=== PATIENT | female | born 1980 | race Caucasian/White ===

== ENCOUNTER 2021-06-09 10:04 | Emergency (ER) | payer BC, SELFPAY ==
--- NOTE | ~2021-06-09 | XR_ITS ---
EXAMINATION: XR chest 2V EXAM DATE: 06/09/2021 10:46 INDICATION: chest tightness . TECHNIQUE: Frontal and lateral projections of the chest obtained and reviewed. There is no prior christy dy for comparison. FINDINGS: The lungs are clear. There are no pleural effusions. The cardiomediastinal silhouette is within normal limits. There is no pneumothorax suspected. The bones and soft tissues are unremarkab le. IMPRESSION: No acute cardiopulmonary findings. Reviewed, dictated and finalized at location A.
--- NOTE | 2021-06-09 10:11 | ED.GENADULT ---
HPI - General Adult General Chief complaint: Chest Pain Stated complaint: TIGHT CHEST/ELEVATED HEART RATE Time Seen by Provider: 06/09/21 10:15 Source: patient, RN notes reviewed and old records reviewed Mode of arrival: ambulatory Limitations: no limitations History of Present Illness HPI narrative: 40 year old female who presents to [facility] care with complaints of tightness to her chest and elevated heart rate since yesterday feeling anxious and low back pain. Patient states that her watch monitors her heart rate and the highest heart rate she has noted has [id number]. Patient reports that she had body aches,chills,cough and headache about 2 weeks ago that lasted for about 1 1/2 weeks and she still has lingering cough and had chills again last night but no noted fever. Patient denies any increase pain or tightness to chest with deep breathing, no increased tightness with activity, no pain with palpation. Patient has had COVID vaccination and flu shot. MD complaint: chest tightness,elevated heart rate cough Onset (ago): day(s) (1) Location: chest and back (lower) Radiation: non-radiation Quality: other (tightness) Related Data Allergies Allergy/AdvReac Type Severity Reaction Status Date / Time No Known Allergies Allergy Verified 06/09/21 10:18 Review of Systems Review of Systems: CONSTITUTIONAL: Denies known fever, positive for chills, or sweats. EYES: Denies visual changes, redness, or discharge. ENT: Denies rhinorrhea, congestion, sore throat, or otalgia. CARDIOVASCULAR: Reports chest tightness, no palpitations, or edema. RESPIRATORY: Reports cough denies dyspnea. GASTROINTESTINAL: Denies abdominal pain, nausea, vomiting, or diarrhea. GENITOURINARY: Denies dysuria or hematuria. SKIN: Denies rash or itching. MUSCULOSKELETAL: Reports low back pain, joint pain, some body aches NEUROLOGIC: Denies headache, numbness, or weakness. PSYCHIATRIC: Denies anxiety or depression. All systems reviewed & are unremarkable except as noted in HPI and below PMFSH Past Medical History Medical History (Updated 06/09/21 @ 11:09 by Ramila Ji NP) Preeclampsia Surgical History Surgical History (Updated 06/09/21 @ 16:15 by Ramila Ji NP) No history of previous surgery Social History Social History (Updated 04/08/22 @ 10:26 by Ramila Ji NP) Smoking status: Never smoker Living arrangements: with family Gender identity (if verbalized by the patient): Female Comments At time of signature, agree with nursing past medical, surgical, social and family history. There is no relevant family history pertinent to the presenting complaint Exam Narrative: GENERAL:ill-appearing, well-nourished, and in no acute distress. HEAD: Normocephalic, atraumatic. EYES: PERRLA and EOMI. ENT: Nares clear, no rhinorrhea or epistaxis. Mucous membranes moist.TM's normal with good light reflex, throat pink with no lesions or exudates or any tonsil enlargement/ NECK: Supple. no lymphadenopathy CHEST: Clear to auscultation. No respiratory distress.SAO2 100% on room air, chest tightness with no increase with deep breathing and no dyspnea stated or any radiation of pain HEART: Regular rate and rhythm. No murmur heard. Normal peripheral pulses. ABDOMEN: Soft, nontender, nondistended, normal active bowel sounds. EXTREMITIES: Normal range of motion. No edema. SKIN: Warm, dry, no rash. NEURO: No focal deficits. Alert and oriented x3. Course Course Level of Care: Express Care Visit Vital Signs Vital signs: Vital Signs Temperature 36.8 C 06/09/21 10:14 Pulse Rate 86 06/09/21 10:14 Respiratory Rate 20 06/09/21 10:14 Blood Pressure 105/73 06/09/21 10:14 Pulse Oximetry 100 06/09/21 10:14 Temperature 36.8 C 06/09/21 10:14 Pulse Rate 86 06/09/21 10:14 Respiratory Rate 20 06/09/21 10:14 Blood Pressure 105/73 06/09/21 10:14 Pulse Oximetry 100 06/09/21 10:14 Medical Decision Making Differential Diagnosis D
[2021-06-09 10:14] VITALS: BP 105/73; PULSE 86; RESP 20; TEMP 36.8; O2SAT 100
--- NOTE | 2021-06-09 10:27 | ECG_ITS ---
Measurements Intervals [place] Rate: 68 P: 28 DC: 134 QRS: 68 QRSD: 89 T: 50 QT: 373 QTc: 397 Interpretive Statements SINUS RHYTHM WITH SINUS ARRHYTHMIA NORMAL ECG NO PREVIOUS ECG AVAILABLE FOR COMPARISON Electronically Signed On 06-09-2021 14:38:25 CDT by Ron Yip M.D.
== END 2021-06-09 11:20 | disposition home or self-care (01) ==
PROVIDERS: Emergency Provider Registered Nurse
DX: R07.89 Other chest pain (principal); J10.1 Influenza due to other identified influenza virus with other respiratory manifestations; Z20.822 Contact with and (suspected) exposure to COVID-19
CPT/HCPCS: 71046; 87426; 87804; 93005; 99213; C9803; G0463

== ENCOUNTER 2021-06-19 22:35 | Emergency (ER) | payer BC, SELFPAY ==
[2021-06-19 22:37] VITALS: BP 113/65; PULSE 100; RESP 18; TEMP 36.7; O2SAT 100
--- NOTE | 2021-06-19 22:50 | ED.GENADULT ---
HPI - General Adult General Chief complaint: Unspecified Stated complaint: HEADACHE/BACK PAIN Time Seen by Provider: 06/19/21 22:45 History of Present Illness HPI narrative: 40-year-old female presents the emergency room for evaluation of acute onset of headache. Patient states the pain encircles her head, feels viselike. Denies photophobia or phonophobia. Denies vision or hearing changes. Denies injury or trauma. Also states pain radiates into her neck. Patient states that she was recently diagnosed and treated for influenza Related Data Allergies Allergy/AdvReac Type Severity Reaction Status Date / Time No Known Allergies Allergy Verified 06/19/21 22:36 Review of Systems Review of Systems: CONSTITUTIONAL: Denies fever, chills, or sweats. EYES: Denies visual changes, redness, or discharge. ENT: Denies rhinorrhea, congestion, sore throat, or otalgia. CARDIOVASCULAR: Denies chest pain, palpitations, or edema. RESPIRATORY: Denies cough or dyspnea. GASTROINTESTINAL: Denies abdominal pain, nausea, vomiting, or diarrhea. GENITOURINARY: Denies dysuria or hematuria. SKIN: Denies rash or itching. MUSCULOSKELETAL: Denies back pain, joint pain, or myalgia. NEUROLOGIC: Reports that PSYCHIATRIC: Denies anxiety or depression. PMFSH Past Medical History Medical History Preeclampsia Surgical History Surgical History No history of previous surgery Social History Social History Smoking status: Never smoker Gender identity (if verbalized by the patient): Female Exam Narrative: GENERAL: Well-appearing, well-nourished, and in no acute distress. HEAD: Normocephalic, atraumatic. EYES: PERRLA and EOMI. CHEST: Clear to auscultation. No respiratory distress. No wheezes rales or rhonchi HEART: Regular rate and rhythm. No murmur heard. Normal peripheral pulses. ABDOMEN: Soft, nontender, nondistended, normal active bowel sounds. EXTREMITIES: Normal range of motion. No edema. SKIN: Warm, dry, no rash. NEURO: No focal deficits. Alert and oriented x3. PSYCH: Normal mood and affect. Course Vital Signs Vital signs: Vital Signs Temperature 36.7 C 06/19/21 22:37 Pulse Rate 100 06/19/21 22:37 Respiratory Rate 18 06/19/21 22:37 Blood Pressure 113/65 06/19/21 22:37 Pulse Oximetry 100 06/19/21 22:37 Temperature 36.7 C 06/19/21 22:37 Pulse Rate 100 06/19/21 22:37 Respiratory Rate 18 06/19/21 22:37 Blood Pressure 113/65 06/19/21 22:37 Pulse Oximetry 100 06/19/21 22:37 Medical Decision Making MDM Narrative Medical decision making narrative: 40-year-old female presented the emergency room complaints of a headache, described as a vice wrapped around her head, with cervical spine tension. Medical Records Medical records reviewed: Yes I reviewed the external patient's medical records. Vital Signs Vital Signs: Vital Signs Temperature 36.7 C 06/19/21 22:37 Pulse Rate 100 06/19/21 22:37 Respiratory Rate 18 06/19/21 22:37 Blood Pressure 113/65 06/19/21 22:37 Pulse Oximetry 100 06/19/21 22:37 Temperature 36.7 C 06/19/21 22:37 Pulse Rate 100 06/19/21 22:37 Respiratory Rate 18 06/19/21 22:37 Blood Pressure 113/65 06/19/21 22:37 Pulse Oximetry 100 06/19/21 22:37 Lab Data Lab results reviewed: Yes I reviewed the patient's lab results. Result diagrams: 06/19/21 23:48 06/19/21 23:48 Labs: Lab Results 06/19/21 06/19/21 Range/Units 23:48 23:48 WBC 9.8 (4.5-10.0) K/mm3 RBC 3.80 L (4.2-5.4) M/mm3 Hgb 11.7 L (12.0-15.0) g/dL Hct 35.5 L (37.0-47.0) % MCV 93.4 (80-100) fl MCH 30.8 (26-34) pg MCHC 33.0 (32-36) g/dl RDW 12.9 (11.5-14.5) % Plt Count 195 (150-375) k/mm3 MPV 9.8 (7.4-10.4) fl Immature Gran % (Auto) 0.2 (0-0.5) %
[2021-06-19] MEDS: KETOROLAC 30 MG/ML VIAL (*BKC) IV PUSH (23:00)
[2021-06-19] MEDS: methylPREDNISolone SOD SUCC 125 MG VIAL IV PUSH (23:00)
[2021-06-19] MEDS: diphenhydrAMINE HCl INJ 50 MG/ML VIAL 25 MG IV PUSH (23:00)
[2021-06-19] MEDS: METOCLOPRAMIDE HCL INJ 10 MG/2 ML VIAL IV PUSH (23:01)
[2021-06-19] MEDS: SODIUM CHLORIDE 0.9% IV 1,000 ML 999 ML IV CONT (23:38)
[2021-06-19 23:56] LABS: Basophils Percent Auto 0.2 % (0.2-1.2); Eosinophils Percent Auto 0.1 % (0-4.4); Hematocrit 35.5 % (37.0-47.0); Hemoglobin 11.7 g/dL (12.0-15.0); Immature Granulocyte Absolute 0.02 K/mm3 (0.00-0.031); Immature Granulocyte Percent A 0.2 % (0-0.5); Lymphocytes Absolute Auto 0.42 K/mm3 (0.9-3.2); Lymphocytes Percent Auto 4.3 % (18.3-44.2); Mean Corpuscular Hemoglobin 30.8 pg (26-34); Mean Corpuscular Volume 93.4 fl (80-100); Mean Platelet Volume 9.8 fl (7.4-10.4); Monocytes Absolute Auto 0.9 K/mm3 (0.1-0.6); Neutrophils Absolute Auto 8.4 K/mm3 (1.3-6.7); Neutrophils Percent Auto 86.2 % (45.5-73.1); Platelet Count Result 195 k/mm3 (150-375); Red Cell Distribution Width 12.9 % (11.5-14.5); White Blood Count 9.8 K/mm3 (4.5-10.0)
[2021-06-20 00:05] LABS: Alanine Aminotransferase 12 U/L (4-35); Albumin Level 4.2 g/dL (3.5-5.1); Alkaline Phosphatase 59 U/L (38-126); Anion Gap 6 mmol/L (8-16); Aspartate Amino Transferase 19 U/L (14-36); Bilirubin,Total 1.9 mg/dL (0.2-1.3); Blood Urea Nitrogen 10 mg/dL (7-17); Calcium 8.4 mg/dL (8.4-10.2); Carbon Dioxide 23 mmol/L (22-30); Chloride 106 mmol/L (98-107); Estimated CRCL calculation 84 ml/min; Estimated Glomerular Filt Rate > 60; Glucose 117 mg/dL (65-110); Potassium 3.4 mmol/L (3.4-5.0); Sodium 135 mmol/L (137-145)
[2021-06-20] MEDS: methocarbamoL 500 MG TABLET PO (01:36)
[2021-06-20 02:44] VITALS: BP 112/62; PULSE 72; RESP 16; O2SAT 100
== END 2021-06-20 02:47 | disposition home or self-care (01) ==
PROVIDERS: Emergency Provider Nurse Practitioner Family
DX: G44.209 Tension-type headache, unspecified, not intractable (principal)
CPT/HCPCS: 36415; 80053; 85025; 96361; 96374; 96375; 99284; A9270; J1200; J1885; J2765; J2930; J7030

== ENCOUNTER 2022-06-07 14:28 | Outpatient (CLI) | payer BC, SELFPAY ==
--- NOTE | ~2022-06-07 | XR_ITS ---
XR chest 2V DATE: 06/07/2022 14:36 INDICATION: Intermittent chest pain for 6 months TECHNIQUE: 2 views COMPARISON: June 09, 2021 2 view chest FINDINGS: Pectus carinatum. Normal heart size. No hilar or mediastinal enlargement. No pulmonary infiltrate or consolidation, ple ural effusion or pulmonary vascular congestion or pneumothorax. There is callus formation at a fracture of the lateral aspect of the right sixth rib, consistent with subacute fracture. IMPRESSION: Subacute lateral right sixth rib fracture No active cardiopulmonary disease Reviewed, dictated and finalized at location A.
== END 2022-06-07 14:29 ==
LOC: GOSHIMG 14:29
PROVIDERS: PCP Family Medicine; Visit Provider Family Medicine
DX: R07.9 Chest pain, unspecified (principal)
CPT/HCPCS: 71046

== ENCOUNTER 2022-07-24 12:16 | Outpatient (CLI) | payer BC, SELFPAY ==
[2022-07-24 12:59] LABS: Hematocrit 26.2 % (37.0-47.0); Hemoglobin 7.3 g/dL (12.0-15.0); Mean Corpuscular HGB Conc 27.9 g/dl (32-36); Mean Corpuscular Hemoglobin 20.7 pg (26-34); Mean Corpuscular Volume 74.4 fl (80-100); Mean Platelet Volume 9.6 fl (7.4-10.4); Platelet Count Result 257 k/mm3 (150-375); Red Blood Count 3.52 M/mm3 (4.2-5.4); White Blood Count 2.9 K/mm3 (4.5-10.0)
[2022-07-24 13:20] LABS: Iron 89 ug/dL (37-170)
[2022-07-24 13:29] LABS: Percent Iron Saturation 21 % (20-50)
[2022-07-24 13:56] LABS: Ferritin 3.81 ng/mL (6.24-137)
== END 2022-07-24 12:17 | disposition home or self-care (01) ==
LOC: ANHLAB 12:17
PROVIDERS: PCP Family Medicine; Visit Provider Family Medicine
DX: D64.9 Anemia, unspecified (principal)
CPT/HCPCS: 36415; 82728; 83540; 83550; 85027

== ENCOUNTER → 2023-01-14 13:08 | Outpatient (CLI) | payer BC, SELFPAY ==
--- NOTE | ~2023-01-14 | MM_ITS ---
EXAMINATION: MM screening fco BI w jerri HISTORY: Screening mammogram, family history of breast cancer in her mother. TECHNIQUE: Craniocaudal and mediolateral oblique 3-D tomosynthesis images were obtained and synthetic 2-D images were generated. CAD analysis was submitted and interpreted. COMPARISON: None, baseline BREAST PARENCHYMAL COMPOSITION: The breasts are heterogeneously dense, which may obscure small masses . FINDINGS: RIGHT BREAST: There are asymmetries in the subareolar aspect of the breast and in the middle third of inner breast, 4.5 cm from the nipple, on the craniocaudal view. LEFT BREAST: No suspicious mass, calcification, or architectural distortion are identified to suggest malignancy. IMPRESSION: 1. Right breast asymmetries. 2. Additional mammographic views and possible breast ultrasound are recommended to evaluate the right breast asymmetries and establish a baseline given that this is the first mammographic examination. BI-RADS Category 0: Incomplete: Needs additional imaging evaluation. Reviewed, dictated and finalized at location A. RIBUTION SALES REPRESENTATIVE IMPRESSION: 1. Right breast asymmetries. 2. Additional mammographic views and possible breast ultrasound are recommended to evaluate the right breast asymmetries and establish a baseline given that t his is the first mammographic examination. BI-RADS Category 0: Incomplete: Needs additional imaging evaluation.
== END ==
PROVIDERS: PCP Family Medicine; Visit Provider Family Medicine
DX: Z12.31 Encounter for screening mammogram for malignant neoplasm of breast (principal); Z80.3 Family history of malignant neoplasm of breast; R92.8 Other abnormal and inconclusive findings on diagnostic imaging of breast
CPT/HCPCS: 77063; 77067

== ENCOUNTER 2023-03-01 10:20 | Outpatient (CLI) | payer BC, SELFPAY ==
--- NOTE | ~2023-03-01 | MMUS_ITS ---
EXAMINATION: MM diagnostic fco RT w jerri, US breast RT complete HISTORY: Right breast mammographic asymmetries reported in subareolar area and in the middle third of the inner breast 4.5 cm from the nipple on screening craniocaudal view of 01/14/2023 TECHNIQUE: Additional 3-D tomosynthesis images of the right breast were performed and synthetic 2-D i mages were generated. CAD analysis was submitted and interpreted. High resolution complete right juliette st ultrasound examination including all 4 quadrants and subareolar area was performed. COMPARISON: 01/14/2023 bilateral screening mammogram FINDINGS: MAMMOGRAPHIC FINDINGS: No suspicious mass or architectural distortion, malignant calcification, skin thickening or retractio n of the right breast is evident. ULTRASOUND: 6 scattered small circumscribed parallel hypoechoic lesions are noted, measuring up to approximately 2.8 x 6 mm maximal dimension. Mild ductal prominence is noted. No suspicious mass or shadowing is detected. IMPRESSION: 1. No mammographic or sonographic evidence of malignancy 2. Routine annual mammographic screening is recommended. BI-RADS Category 2: Benign finding(s). Reviewed, dictated and finalized at location A. UNT ASSOCIATE IMPRESSION: 1. No mammographic or sonographic evidence of malignancy 2. Routine annual mammographic screening is recommended. BI-RADS Category 2: Benign finding(s).
== END 2023-03-01 10:21 ==
LOC: MICIMG 10:21
PROVIDERS: PCP Family Medicine; Visit Provider Family Medicine
DX: R92.8 Other abnormal and inconclusive findings on diagnostic imaging of breast (principal); Z80.3 Family history of malignant neoplasm of breast
CPT/HCPCS: 76641; 77061; 77065; G0279

== ENCOUNTER 2023-06-12 09:20 | Outpatient (CLI) | payer BC, SELFPAY ==
--- NOTE | 2023-06-12 09:36 | EST_ITS ---
Patient Info Name: Brandie Brown Age: 42 years : 1980 Gender: Female Ht: 65 in Wt: 145 lbs BSA: 1.75 m2 HR: 59 bpm BP: 105 / 70 mmHg Heart Rhythm: Sinus Rhythm Exam Date: 06/12/2023 9:48 AM Exam Location: Echo Lab Patient Status: Outpatient Admit Date: 06/12/2023 Staff Ordering Physician: Breanne Ga Attending Provider: Ada Dacosta DO Exercise Technologist: Reyna Liz CT Exercise Physician: Dennis Grajeda DO Exam Type: CA stress test treadmill Study Info Indications R07.89 - Other chest pain A treadmill exercise stress test was performed. Summary 1. 1. Negative Shoaib exercise stress test for ischemic ST changes by ECG criteria. 2. 2. Good functional capacity, achieving 11 METs of workload. 3. 3. Appropriate HR response to exercise. 4. 4. Appropriate HR recovery at 1 minute post exercise. 5. 5. No imaging with stress testing. 6. 6. Patient informed of the above results. Protocol: Shoaib Stress ECG Details Stage: REST Duration (min): 1 min : 0 sec Speed (mph): 0.0 Grade (%): 0 HR (bpm): 63 SBP (mmHg): 105 DBP (mmHg): 70 METS: --- Stage: REST Duration (min): 13 min : 9 sec Speed (mph): 0.0 Grade (%): 0 HR (bpm): 65 SBP (mmHg): 105 DBP (mmHg): 70 METS: --- Stage: STAGE 1 Duration (min): 1 min : 0 sec Speed (mph): 1.7 Grade (%): 10 HR (bpm): 102 SBP (mmHg): 105 DBP (mmHg): 70 METS: --- Stage: STAGE 1 Duration (min): 2 min : 0 sec Speed (mph): 1.7 Grade (%): 10 HR (bpm): 101 SBP (mmHg): 105 DBP (mmHg): 70 METS: --- Stage: STAGE 1 Duration (min): 3 min : 0 sec Speed (mph): 1.7 Grade (%): 10 HR (bpm): 102 SBP (mmHg): 135 DBP (mmHg): 65 METS: --- Stage: STAGE 2 Duration (min): 1 min : 0 sec Speed (mph): 2.5 Grade (%): 12 HR (bpm): 116 SBP (mmHg): 135 DBP (mmHg): 65 METS: --- Stage: STAGE 2 Duration (min): 2 min : 0 sec Speed (mph): 2.5 Grade (%): 12 HR (bpm): 115 SBP (mmHg): 137 DBP (mmHg): 68 METS: --- Stage: STAGE 2 Duration (min): 3 min : 0 sec Speed (mph): 2.5 Grade (%): 12 HR (bpm): 123 SBP (mmHg): 137 DBP (mmHg): 68 METS: --- Stage: STAGE 3 Duration (min): 1 min : 0 sec Speed (mph): 3.4 Grade (%): 14 HR (bpm): 146 SBP (mmHg): 163 DBP (mmHg): 77 METS: --- Stage: STAGE 3 Duration (min): 2 min : 0 sec Speed (mph): 3.4 Grade (%): 14 HR (bpm): 138 SBP (mmHg): 163 DBP (mmHg): 77 METS: --- Stage: STAGE 3 Duration (min): 3 min : 0 sec Speed (mph): 3.4 Grade (%): 14 HR (bpm): 147 SBP (mmHg): 149 DBP (mmHg): 76 METS: --- Stage: STAGE 4 Duration (min): 0 min : 30 sec Speed (mph): 4.2 Grade (%): 16 HR (bpm): 160 SBP (mmHg): 149 DBP (mmHg): 76 METS: --- Stage: RECOVERY Duration (min): 0 min : 29 sec Speed (mph): 0.0 Grade (%): 0 HR (bpm): 139 SBP (mmHg): 149 DBP (mmHg): 76 METS
== END 2023-06-12 09:21 | disposition home or self-care (01) ==
PROVIDERS: PCP Family Medicine; Visit Provider Family Medicine
DX: R07.9 Chest pain, unspecified (principal)
CPT/HCPCS: 93017

== ENCOUNTER 2024-12-03 13:44 | Emergency (ER) | payer BC, SELFPAY ==
[2024-12-03] VITALS (19 sets, daily range): BP systolic 113–127; BP diastolic 73–88; PULSE 72–107; RESP 10–32; TEMP 36.4; O2SAT 99–100
--- OUTSIDE RECORDS SUMMARY | 2024-12-03 13:49 | XMS_ITS | Clinical Summary ---
Author Organization [facility] [address] [place] [address] [place] [id number] Care Team Providers Care Dinkey Engineer Name Role Phone Unavailable Primary Care Provider Unavailabl e Allergies No known active allergies Medications vit calc,iron,folic ( VITAMIN ORAL) Take by mouth. A ctive ibuprofen (MOTRIN) 600 mg tablet Take 1 Tablet (600 mg) by mouth every 6 hours as needed for pain secondary to inflammation. 60 Tablet 1 03/18/2020 11:05 AM DROP WIRE ALIGNER 1 Active NIFEdipine (PROCARDIA XL) 30 mg Extended Release 24 hour tablet Take 1 Tablet (30 mg) by mouth daily. 30 Tablet 3 03/23/2020 10:07 AM DROP WIRE ALIGNER 1 Active Active Problems Problem Noted Date Diagnosed Date Pre-eclampsia, severe, delivered 03/21/2020 Acute pulmonary edema 03/21/2020 Vacuum-assisted vaginal delivery 03/16/2020 Back pain in 02/21/2020 Encounter for elective induction of labor 2018 AMA (advanced maternal age) multigravida 35+, unspecified trimester 08/25/2018 Supervision of high risk in third trim princess 07/05/2015 Overview (12/06/2015): O+/I/-/-, HIV neg GCT: 83 Dyspnea Precordial pain Elevated BP without diagnosis of hypertension Nonrheumatic mitral valve regurgitation Resolved Problems Problem Noted Date Diagnosed Date Resolved Date ; Girl 01/19/2016 01/20/2016 uterine contractions in third trimester, antepartum 12/02/2015 12/14/2015 Overview (12/02/2015): 12/02/15 Triage eval Incomplete 09/28/2013 01/19/20 14 Threatened in early 08/31/2013 09/28/2013 Overview (09/07/2013): US on 08/31/13: gestational sac present, about 6 wks +; no pole Beta HCG 20K-->19K Immunizations Immunization Administration Dates Next Due (ADACEL/BOOSTRIX)(10 YR UP) TDAP VACCINE, 0.5ML, IM 01/12/2020,09/15/2018,11/08/2015 INFLUENZA VACCINE QUADRIVALE NT 6 MOS UP PF IM 12/01/2019,11/08/2018(Deferred: Other (See comments)) Family History * Patient is adopted Medical History Relation Name Comments Healthy Daughter 1 Lisa Breast Cancer Mother patient heard mom with breast cancer Colon Cancer Neg Hx Ovarian Cancer Neg Hx Relation Name Status Comments Daughter 1 Lisa Alive Daughter 2 Joe Alive Mother Social History Tobacco Use Types Packs/Day Years Used Date Smoking Tobacco: Never Smokeless Tobacco: Never Tobacco Cessation:Counseling Given: No Alcohol Use Standard Drinks/Week Comments No 0 (1 standard drink = 0.6 oz pur e alcohol) Comments No Sex and Gender Information Value Date Recorded Sex Assigned at Not on file Legal Sex Female 10:46 AM CDT Gender Identity Not on file Sexual Orientation Not on file Last Filed Vital Signs Vital Sign Reading Time Taken Comments Blood Pressure 120/72 03/23/2020 9:15 AM DROP WIRE ALIGNER Pulse 54 03/21/2020 2:40 PM DROP WIRE ALIGNER Temperature 36.6 C (97.9 F) 03/22/2020 6:22 AM DROP WIRE ALIGNER Respiratory Rate 16 03/23/2020 9:15 AM DROP WIRE ALIGNER Oxygen Saturation 99% 03/22/2020 8:19 PM DROP WIRE ALIGNER Inhaled Oxygen Concentration - - Weight 78 kg (172 lb) 03/16/2020 9:24 AM DROP WIRE ALIGNER Height 165.1 cm (5' 5) 03/16/2020 9:24 AM DROP WIRE ALIGNER Body Mass Index 28.62 03/16/2020 9:24 AM DROP WIRE ALIGNER Plan of Treatment Health Maintenance Due Date Last Done Comments HEPATITIS B VACCINES (1 of 3 - 19+ 3-dose series) 2000 HPV VACCINES (1 - 3-dose SCD M series) 2008 PAP SMEAR 04/07/2021 04/07/2018, 08/31/2013 BREAST CANCER SCREENING 2021 CERVICAL CANCER SCREENING 04/07/2023 HPV/Cotest (21-29) 04/07/2023 04/07/2018, 08/31/2013 HPV/Cotest (30-65) 04/07/2023 04/07/2018, 08/31/2013 INFLUENZA VACCINE (#1) 2024 12/01/2019 DTAP/TDAP/TD VACCINES (4 - T d or Tdap) 01/11/2030 01/12/2020, 09/15/2018, 11/08/2015 Procedures Procedure Name Priority Date/Time Associated Diagnosis Comments CERV/VAG CYTO AGE BASED SCREEN PAP W CT/NG Routine 04/07/2018 9:55 AM DROP WIRE ALIGNER Well woman exam with routine gynecological exam Screening for STD (sexually transmitted disease) from Last 3 Months or Most Recently Relevant to Health Maintenance Results * CERV/VAG CYTO AGE BASED SCREEN PAP W CT/NG (04/07/2018 9:55 AM DROP WIRE ALIGNER) COMMENT (PAP): SEE COMMENT 9 6:25 AM DROP WIRE ALIGNER [facility] Comment: This order for age-based cervical cancer and STI screening follows ACOG guidelines(PB 168, 140, AXY692). See individual assays for performing site location. CLINICAL INFORMATION 04/14/2018 6:25 AM DROP WIRE ALIGNER [facility] LAST MENSTRUAL PERIOD 03/18/18 04/14/2018 6:25 AM DROP WIRE ALIGNER [facility] PREV PAP: 08/31/13 NIL 04/14/2018 6:25 AM DROP WIRE ALIGNER [facility] PREV BX: Information not provided 04/14/2018 6:25 AM DROP WIRE ALIGNER [facility] SOURCE Endocervix 04/14/2018 6:25 AM DROP WIRE ALIGNER [facility] ADEQUACY: SEE COMMENT 04/14/2018 6:25 AM DROP WIRE ALIGNER [facility] Comment: Satisfactory for evaluation. Endocervical/transformation zone component present. PAP INTERP Negative for intraepithelial lesion or malignancy. 04/14/2018 6:25 AM DROP WIRE ALIGNER [facility] CYTOLOGY INFECTION Shift in vaginal ana suggestive of bacterial vaginosis. 04/14/2018 6:25 AM [facility] COMMENT This Pap test has been evaluated with computer assisted technology. 04/14/2018 6:25 AM [facility] EM PHYSICIAN: SEE COMMENT 2018 6:25 AM [facility] Comment: LMT, CT(ASCP) CT screening location: [place] [address] [place] [address] EXPLANATORY NOTE SEE COMMENT 019 6:25 AM [facility] Comment: EXPLANATORY NOTE: The Pap is a screening test for cervical cancer. It is not a diagnostic test and is subject to false negative and false positive results. It is most reliable when a satisfactory sample, regularly obtained, is submitted with relevant clinical findings and history, and when the Pap result is evaluated along with historic and current clinical information. HPV E6/E7 Not Detected Not Detected 04/14/2018 6:25 AM [facility] Comment: This test was performed using the APTIMA HPV Assay ([employer] This assay detects E6/E7 viral messenger RNA (mRNA) from 14 high-risk HPV types (16,18,31,33,35,39,45,51,52,56,58,59,66,68). The analytical performance characteristics of this assay have been determined by [facility]. The modifications have not been cleared or approved by the FDA. This assay has been validated pursuant to the CLIA regulations and is used for clinical purposes. Genital SWAB OF ENDOCERVIX / Unknown Collection / Unknown 04/07/2018 9:55 AM DROP WIRE ALIGNER 04/07/2018 2:59 PM DROP WIRE ALIGNER Narrative [facility] - 04/14/2018 6:25 AM DROP WIRE ALIGNER Performing Organization Information: Site ID: [id number] [facility] Address: [address] [place] [address] Director: Daniele Torres D.O., MPH Site ID: [id number] [facility] Address: [address] [address] Director: Jaye Cisneros Neha Quintana NP PATHOLOGY/CYTOLOGY ORDERAB LES Final Result [facility] [phone] from Last 3 Months or Most Recently Relevant to Health Maintenance Insurance MEDICAID [place] RX [employer] Medicaid RX [employer] Commercial Advance Directives For more information, please contact: [phone] * Full Code (Latest Code Status on File) Date Activated Date Inactivated Comments 03/21/2020 5:17 PM 03/23/2020 2:14 PM * Full Code Date Activated Date Inactivated Comments 03/16/2020 11:46 PM 03/18/2020 1:48 PM * Full Code Date Activated Date Inactivated Comments 03/16/2020 9:31 AM 03/16/2020 11:46 PM * Full Code Date Activated Date Inactivated Comments 02/21/2020 3:06 PM 02/21/2020 9:41 PM * Full Code Date Activated Date Inactivated Comments 11/26/2018 4:48 PM 11/28/2018 3:28 PM
--- OUTSIDE RECORDS SUMMARY | 2024-12-03 13:49 | XMS_ITS | Clinical Summary ---
Author Organization [facility] Address [address] [place] [address] Care Team Providers Care Gas Cutting Machine Operator Name Role Phone Unavailable Primary Care Provider Unavailabl e Social History Tobacco Use Types Packs/Day Years Used Date Smoking Tobacco: Never Assessed Comments Unknown Sex and Gender Information Value Date Recorded Sex Assigned at Not on file Legal Sex Female 1:20 AM PST Gender Identity Not on file Sexual Orientation Not on file Plan of Treatment Not on file
--- OUTSIDE RECORDS SUMMARY | 2024-12-03 13:49 | XMS_ITS | Clinical Summary ---
Author Organization [facility] Address [address] [place] [id number] Care Team Providers Care Skein Washer Name Role Phone Unavailable Primary Care Provider Unavailabl e Social History Tobacco Use Types Packs/Day Years Used Date Smoking Tobacco: Never Assessed Comments Unknown Sex and Gender Information Value Date Recorded Sex Assigned at Not on file Legal Sex Female 11:48 PM CDT Gender Identity Not on file Sexual Orientation Not on file Plan of Treatment Health Maintenance Due Date Last Done Comments Cervical Cancer Screening Pa p Smear (Age 30 to 64) Every 3 Years 1981 Annual Physical 1984 Hepatitis C 08/11/1999 DTaP, Tdap and Td Vaccines ( 1 - Tdap) 2000 Hepatitis B Vaccines (1 of 3 - 19+ 3-dose series) 2000 HPV Vaccines (1 - 3-dose SCD M series) 2008 Cervical Cancer Screening Pa p with HPV Testing (Age 30 to 64) Every 5 Years 08/11/2011 Cervical Cancer Screening with HPV 08/11/2011 Mammogram Screening 2021 COVID-19 Vaccine (2023-2 5 season) 2024 Meningococcal B Vaccine Aged Out No l onger eligible based on patient's age to complete this topic Meningococcal Vaccine Aged Out No pedro russ eligible based on patient's age to complete this topic Pneumococcal Vaccine: Pediat rics (0 to 5 Years) and At-Risk Patients (6 to 49 Years) Aged Out No longer eligible b ased on patient's age to complete this topic RSV Immunizations Under 20 Months Aged Out No longer eligible based on patient's age to complete this topic
--- OUTSIDE RECORDS SUMMARY | 2024-12-03 13:49 | XMS_ITS | Encounter Summary ---
Author Organization [facility] Address [address] [place] [address] Care Team Providers Care Receiving Team Member Name Role Phone Unavailable Primary Care Provider Unavailabl e Prior Encounters Date Type Department Care Team Description 03/23/2019 Converted CPS Chart Documents [facility] [address] [place] [address] <No scans attached> 03/23/2019 Converted 13x Documents [facility] [address] [place] [address] <No scans attached> Plan of Treatment Not on file Procedures Procedure Name Priority Date/Time Associated Diagnosis Comments MISSED APPOINTMENT Routine 06/04/2016 2: 00 AM CDT 28 B COMPOSITE FILLING Routine 7 2:00 AM FISHING VESSEL MATE 20 B COMPOSITE FILLING Routine 7 2:00 AM FISHING VESSEL MATE 22 F COMPOSITE FILLING Routine 7 2:00 AM FISHING VESSEL MATE 18 MODB COMPOSITE FILLING Routine 2016 2:00 AM FISHING VESSEL MATE 13 MOD COMPOSITE FILLING Routine 016 2:00 AM FISHING VESSEL MATE 15 MO COMPOSITE FILLING Routine 01/10/20 16 2:00 AM FISHING VESSEL MATE 12 EXTRACTION, ERUPTED TOOTH OR EXPOSED ROOT (ELEVATION AND/OR FORCEPS REMOVAL) Routine 10/04/2015 2:00 AM CDT 12 LIMITED ORAL EVALUATION - PROBLEM FOCUSED Routine 09/29/2015 2:00 AM CDT MISSED APPOINTMENT Routine 07/05/2015 2: 00 AM CDT PROPHYLAXIS - ADULT Routine 06/29/2015 2 :00 AM CDT 19 DEVORAH AMALGAM 2 SURFACE Routine 06/14/19 16 2:00 AM CDT 18 MO AMALGAM 2 SURFACE Routine 06/14/19 16 2:00 AM CDT 3 ENDODONTIC THERAPY, MOLAR TOOTH (EXCLUDING FINAL SYNAGOGUE) Routine 06/14/2015 2:00 AM CDT 3 CROWN PFM POST Routine 06/14/2015 2:00 AM CDT COMPREHENSIVE ORAL EVALUATION - NEW OR ESTABLISHED PATIENT Routine 06/14/2015 2:00 AM CDT 13 MOD COMPOSITE FILLING Routine 016 2:00 AM CDT 4 MOD COMPOSITE FILLING Routine 06/14/19 16 2:00 AM CDT 15 MO COMPOSITE FILLING Routine 06/14/19 16 2:00 AM CDT 12 DO COMPOSITE FILLING Routine 06/14/19 16 2:00 AM CDT 5 DO COMPOSITE FILLING Routine 6 2:00 AM CDT 30 O COMPOSITE FILLING Routine 6 2:00 AM CDT 20 B COMPOSITE FILLING Routine 6 2:00 AM CDT 21 EXTRACTION, ERUPTED TOOTH OR EXPOSED ROOT (ELEVATION AND/OR FORCEPS REMOVAL) Routine 05/03/2015 2:00 AM FISHING VESSEL MATE PANORAMIC RADIOGRAPHIC IMAGE Routine 05/02/2015 2:00 AM FISHING VESSEL MATE ADDITIONAL X-RAY Routine 05/02/2015 2:00 AM FISHING VESSEL MATE SINGLE X-RAY Routine 05/02/2015 2:00 AM FISHING VESSEL MATE 21 THERAPEUTIC PULPOTOMY (EXCLUDING FINAL SYNAGOGUE) Routine 04/29/2015 2:00 AM FISHING VESSEL MATE 21 LIMITED ORAL EVALUATION - PROBLEM FOCUSED Routine 04/29/2015 2:00 AM FISHING VESSEL MATE Visit Diagnoses Not on file
--- OUTSIDE RECORDS SUMMARY | 2024-12-03 14:34 | XMS_ITS | Encounter Summary ---
Author Organization [facility] Address [address] [place] [address] Care Team Providers Care Lead Inspector Name Role Phone Unavailable Primary Care Provider Unavailabl e Prior Encounters Date Type Department Care Team Description 03/23/2019 Converted CPS Chart Documents [facility] [address] [place] [address] <No scans attached> 03/23/2019 Converted 13x Documents [facility] [address] [place] [address] <No scans attached> Plan of Treatment Not on file Procedures Procedure Name Priority Date/Time Associated Diagnosis Comments MISSED APPOINTMENT Routine 06/04/2016 2: 00 AM CDT 28 B COMPOSITE FILLING Routine 7 2:00 AM LABORER SHELLFISH PROCESSING 20 B COMPOSITE FILLING Routine 7 2:00 AM LABORER SHELLFISH PROCESSING 22 F COMPOSITE FILLING Routine 7 2:00 AM LABORER SHELLFISH PROCESSING 18 MODB COMPOSITE FILLING Routine 2016 2:00 AM LABORER SHELLFISH PROCESSING 13 MOD COMPOSITE FILLING Routine 016 2:00 AM LABORER SHELLFISH PROCESSING 15 MO COMPOSITE FILLING Routine 01/10/20 16 2:00 AM LABORER SHELLFISH PROCESSING 12 EXTRACTION, ERUPTED TOOTH OR EXPOSED ROOT [...] 3 ENDODONTIC THERAPY, MOLAR TOOTH (EXCLUDING FINAL CONGREGATION) Routine 06/14/2015 2:00 AM CDT 3 CROWN [...] AND/OR FORCEPS REMOVAL) Routine 05/03/2015 2:00 AM LABORER SHELLFISH PROCESSING PANORAMIC RADIOGRAPHIC IMAGE Routine 05/02/2015 2:00 AM LABORER SHELLFISH PROCESSING ADDITIONAL X-RAY Routine 05/02/2015 2:00 AM LABORER SHELLFISH PROCESSING SINGLE X-RAY Routine 05/02/2015 2:00 AM LABORER SHELLFISH PROCESSING 21 THERAPEUTIC PULPOTOMY (EXCLUDING FINAL CONGREGATION) Routine 04/29/2015 2:00 AM LABORER SHELLFISH PROCESSING 21 LIMITED ORAL EVALUATION - PROBLEM FOCUSED Routine 04/29/2015 2:00 AM LABORER SHELLFISH PROCESSING Visit Diagnoses Not on file
--- OUTSIDE RECORDS SUMMARY | 2024-12-03 14:34 | XMS_ITS | Clinical Summary ---
Author Organization [email or web address] [address] [place] [address] [place] [id number] Care Team Providers Care Sr Account Executive Name Role Phone Unavailable Primary Care Provider Unavailabl e Allergies No known active allergies Medications vit calc,iron,folic ( VITAMIN ORAL) Take by mouth. A ctive ibuprofen (MOTRIN) 600 mg tablet Take 1 Tablet (600 mg) by mouth every 6 hours as needed for pain secondary to inflammation. 60 Tablet 1 03/18/2020 11:05 AM AMMONIA TECHNICIAN 1 Active NIFEdipine (PROCARDIA XL) 30 mg Extended Release 24 hour tablet Take 1 Tablet (30 mg) by mouth daily. 30 Tablet 3 03/23/2020 10:07 AM AMMONIA TECHNICIAN 1 Active Active Problems Problem Noted Date [...] Comments Blood Pressure 120/72 03/23/2020 9:15 AM AMMONIA TECHNICIAN Pulse 54 03/21/2020 2:40 PM AMMONIA TECHNICIAN Temperature 36.6 C (97.9 F) 03/22/2020 6:22 AM AMMONIA TECHNICIAN Respiratory Rate 16 03/23/2020 9:15 AM AMMONIA TECHNICIAN Oxygen Saturation 99% 03/22/2020 8:19 PM AMMONIA TECHNICIAN Inhaled Oxygen Concentration - - Weight 78 kg (172 lb) 03/16/2020 9:24 AM AMMONIA TECHNICIAN Height 165.1 cm (5' 5) 03/16/2020 9:24 AM AMMONIA TECHNICIAN Body Mass Index 28.62 03/16/2020 9:24 AM AMMONIA TECHNICIAN Plan of Treatment Health Maintenance Due Date [...] PAP W CT/NG Routine 04/07/2018 9:55 AM AMMONIA TECHNICIAN Well woman exam with routine gynecological exam Screening for STD (sexually transmitted disease) from Last 3 Months or Most Recently Relevant to Health Maintenance Results * CERV/VAG CYTO AGE BASED SCREEN PAP W CT/NG (04/07/2018 9:55 AM AMMONIA TECHNICIAN) COMMENT (PAP): SEE COMMENT 9 6:25 AM AMMONIA TECHNICIAN [facility] Comment: This order for age-based cervical cancer and STI screening follows ACOG guidelines(PB 168, 140, QRY648). See individual assays for performing site location. CLINICAL INFORMATION 04/14/2018 6:25 AM AMMONIA TECHNICIAN [facility] LAST MENSTRUAL PERIOD 03/18/18 04/14/2018 6:25 AM AMMONIA TECHNICIAN [facility] PREV PAP: 08/31/13 NIL 04/14/2018 6:25 AM AMMONIA TECHNICIAN [facility] PREV BX: Information not provided 04/14/2018 6:25 AM AMMONIA TECHNICIAN [facility] SOURCE Endocervix 04/14/2018 6:25 AM AMMONIA TECHNICIAN [facility] ADEQUACY: SEE COMMENT 04/14/2018 6:25 AM AMMONIA TECHNICIAN [facility] Comment: Satisfactory for evaluation. Endocervical/transformation zone component present. PAP INTERP Negative for intraepithelial lesion or malignancy. 04/14/2018 6:25 AM AMMONIA TECHNICIAN [facility] CYTOLOGY INFECTION Shift in vaginal ana suggestive of bacterial vaginosis. 04/14/2018 6:25 AM [facility] COMMENT This Pap test has been evaluated with computer assisted technology. 04/14/2018 6:25 AM [facility] MANAGER PLUMBING: SEE COMMENT 2018 6:25 AM [facility] Comment: LMT, CT(ASCP) CT screening location: [place] [address] [place] [address] EXPLANATORY NOTE SEE COMMENT 019 6:25 AM [facility] Comment: EXPLANATORY NOTE: The [...] Not Detected Not Detected 04/14/2018 6:25 AM [facility] Comment: This test was performed using the APTIMA HPV Assay ([employer] This assay detects E6/E7 viral messenger RNA (mRNA) from 14 high-risk HPV types (16,18,31,33,35,39,45,51,52,56,58,59,66,68). The analytical performance characteristics of this assay have been determined by [facility]. The modifications have not been cleared or approved by the FDA. This assay has been validated pursuant to the CLIA regulations and is used for clinical purposes. Genital SWAB OF ENDOCERVIX / Unknown Collection / Unknown 04/07/2018 9:55 AM AMMONIA TECHNICIAN 04/07/2018 2:59 PM AMMONIA TECHNICIAN Narrative [facility] - 04/14/2018 6:25 AM AMMONIA TECHNICIAN Performing Organization Information: Site ID: [id number] [facility] Address: [address] [place] [address] Director: Daniele Torres D.O., MPH Site ID: [id number] [facility] Address: [address] [address] Director: Jaye Cisneros Neha Quintana NP PATHOLOGY/CYTOLOGY ORDERAB LES Final Result [facility] [phone] from Last 3 Months or Most Recently Relevant to Health Maintenance Insurance MEDICAID [place] RX [employer] Medicaid RX [employer] Commercial Advance Directives For more information, please contact: [phone] * Full Code (Latest Code Status on [...]
--- OUTSIDE RECORDS SUMMARY | 2024-12-03 14:34 | XMS_ITS | Clinical Summary ---
Author Organization [facility] Address [address] [place] [address] Care Team Providers Care Personal Care Home Administrator Name Role Phone Unavailable Primary Care Provider [...]
--- OUTSIDE RECORDS SUMMARY | 2024-12-03 14:34 | XMS_ITS | Clinical Summary ---
Author Organization [facility] Address [address] [place] [address] Care Team Providers Care Asphalt Heater Tender Name Role Phone Unavailable Primary Care Provider [...]
--- NOTE | 2024-12-03 14:52 | ED_ITS ---
HPI - General Adult General Chief complaint: Headache Stated complaint: headache, high heart rate, fatigue, nausea Time Seen by Provider: 12/03/24 14:17 History of Present Illness HPI narrative: 44-year-old female present to the emergency department for evaluation for evaluation for headache and tachycardia. Patient states she is a runner and her resting heart rate is typically in the 60s but is been running closer to 80s and 90s. Patient states when she went today she had a heart rate of approximately 190. Patient denies any excessive shortness of breath or chest pain with this. Patient states even after running it took a while for her heart rate to return to normal. Patient denies any prior history of PE or DVT. Patient denies any hormone replacement or control. Patient does have an anxious affect but patient does not feel that anxiety is the underlying etiology for her symptoms. Related Data Home Medications ?Medication ?Instructions ?Recorded ?Confirmed ?Last Taken ?Type ascorbate calcium (vitamin C) 500 500 mg PO DAILY 11/02 11/26 Unknown History mg tablet ferrous sulfate 325 mg (65 mg 325 mg PO DAILY 11/20/24 Unknown History iron) tablet Allergies Allergy/AdvReac Type Severity Reaction Status Date / Time No Known Allergies Allergy Verified 12/03/24 13:54 Review of Systems 2 Review of Systems: All systems reviewed & are unremarkable except as noted in HPI and below PMFSH Past Medical History Medical History Preeclampsia Surgical History Surgical History No history of previous surgery Social History Social History Smoking status: Never smoker Alcohol intake: never Substance use: never Lack of Transportation: No Lack of Food: Never True Current Housing: I Have Housing Concerned About Future Housing: No Difficulty Paying Gas/Electric Bills: No Difficulty Paying for Meds: No Currently Unemployed: No Education: Bachelor's Degree Difficulty w/ Childcare or Family Care: No Living arrangements: with family Gender identity (if verbalized by the patient): Female Exam 2 Narrative: APPEARANCE: Well appearing, no pain, no distress, well-nourished. HEAD: normocephalic, atraumatic. EYES: PERRLA/EOMI, conjunctivae clear. NOSE: Normal no drainage EARS:TMS clear with good light reflex. THROAT: Pharynx clear, no exudate. NECK: Supple. No adenopathy, no masses. RESPIRATORY: Airway patent, respirations nonlabored. Clear to auscultation bilaterally, no rales, rhonchi, wheezing. CARDIOVASCULAR: Regular rate and rhythm without murmurs rubs or gallops. ABDOMINAL: Soft, nontender, nondistended, normal bowel sounds MUSCULOSKELETAL: Moves all extremities. Strength/ROM intact, No edema, No calf tenderness. NEURO: Alert. Cranial nerves II through XII intact. Good gait. Good coordination SKIN: Warm, dry. Normal Color Course Vital Signs Vital signs: Vital Signs Temperature 97.5 F L 12/03/24 13:54 Pulse Rate 85 12/03/24 13:54 Respiratory Rate 20 12/03/24 13:54 Blood Pressure 122/82 12/03/24 13:54 Pulse Oximetry 100 12/03/24 13:54 Oxygen Delivery Room Air 12/03/24 13:54 Temperature 97.5 F L 12/03/24 13:54 Pulse Rate 79 12/03/24 17:00 Respiratory Rate 20 12/03/24 17:00 Blood Pressure 121/73 12/03/24 16:31 Pulse Oximetry 100 12/03/24 17:00 Oxygen Delivery Room Air 12/03/24 13:54 Medical Decision Making [facility] Narrative Medical decision making narrative: 44-year-old female presented emergency department for evaluation for intermittent tachycardia headache. Patient does feel improved with IV fluids. Patient was also treated with 0.5 mg of p.o. Ativan, 15 mg of IV Toradol. Re- evaluation patient did feel improved. Patient was afebrile no leukocytosis and hemoglobin of 11.9. No acute abnormalities on her CMP urine was concerning for a urinary tract infection with high white blood cells. Patient was started on dose of IV Rocephin and urine culture was ordered. Patient will be discharged home with p.o. Keflex. Suspect dehydration and underlying urinary tract infection for the patient's symptoms. Patient was advised to have close follow-up with primary care physician. All questions concerns were addressed. Patient was PERC negative Differential Diagnosis Differential Diagnosis: Dehydration, tachycardic heart palpitations, SVT, AFib, pulmonary embolism, UTI, COVID, RSV, influenza Vital Signs Vital Signs: Vital Signs Temperature 97.5 F L 12/03/24 13:54 Pulse Rate 85 12/03/24 13:54 Respiratory Rate 20 12/03/24 13:54 Blood Pressure 122/82 12/03/24 13:54 Pulse Oximetry 100 12/03/24 13:54 Oxygen Delivery Room Air 12/03/24 13:54 Temperature 97.5 F L 12/03/24 13:54 Pulse Rate 79 12/03/24 17:00 Respiratory Rate 20 12/03/24 17:00 Blood Pressure 121/73 12/03/24 16:31 Pulse Oximetry 100 12/03/24 17:00 Oxygen Delivery Room Air 12/03/24 13:54 Lab Data Lab results reviewed: Yes I reviewed the patient's lab results. 12/03/24 14:56 12/03/24 14:56 Labs: Lab Results 12/03/24 Range/Units 14:56 WBC 5.8 (4.5-10.0) K/mm3 RBC 3.90 L (4.2-5.4) M/mm3 Hgb 11.9 L D (12.0-15.0) g/dL Hct 35.6 L (37.0-47.0) % MCV 91.3 (80-100) fl MCH 30.5 (26-34) pg MCHC 33.4 (32-36) g/dl RDW 12.8 (11.5-14.5) % Plt Count 232 (150-375) k/mm3 MPV 9.7 (7.4-10.4) fl Immature Gran % (Auto) 0.3 (0-0.5) % Neut % (Auto) 74.1 H (45.5-73.1) % Lymph % (Auto) 15.9 L (18.3-44.2) % [place] % (Auto) 5.9 (2.6-8.5) % Eos % (Auto) 3.1 (0-4.4) % Baso % (Auto) 0.7 (0.2-1.2) % Lymph # (Auto) 0.92 (0.9-3.2) K/mm3 [place] # (Auto) 0.3 (0.1-0.6) K/mm3 Eos # (Auto) 0.2 (0-0.3) K/mm3 Baso # (Auto) 0.0 (0.0-0.1) K/mm3 Abs Immat Gran (auto) 0.02 (0.00-0.031) K/mm3 Absolute Neuts (auto) 4.3 (1.3-6.7) K/mm3 Absolute Nucleated RBC 0.000 (0.0-0.012) K/mm3 Nucleated RBC % 0.0 (0.0-0.2) % Sodium 135 L (137-145) mmol/L Potassium 3.6 (3.4-5.0) mmol/L Chloride 104 (98-107) mmol/L Carbon Dioxide 24 (22-30) mmol/L Anion Gap 7 (4-12) mmol/L BUN 15 D (7-17) mg/dL Creatinine 0.85 (0.7-1.0) mg/dL Estim Creat Clear Calc 67 ml/min Estimated GFR > 60 (59 - ) Glucose 96 (65-110) mg/dL Calcium 8.7 (8.4-10.2) mg/dL Magnesium 2.1 (1.6-2.3) mg/dL Total Bilirubin 1.0 (0.2-1.3) mg/dL AST 30 (14-36) U/L ALT 20 (6-35) U/L Alkaline Phosphatase 56 (38-126) U/L Total Protein 7.1 (6.3-8.2) g/dL Albumin 4.1 (3.5-5.1) g/dL TSH (Reflex) 0.738 (0.465-4.68) uIU/mL Urine Color Yellow (Yellow) Urine Appearance Turbid H (Clear) Urine pH 7.5 (5.0-9.0) Ur Specific [place] 1.020 (1.001-1.035) Urine Protein Negative (Negative) mg/dL Urine Glucose (UA) Negative (Negative) mg/dL Urine Ketones Trace H (Negative) mg/dL Ur Blood (Man) Negative (Negative) Urine Nitrate Negative (Negative) Urine Bilirubin Negative (Negative) Urine Urobilinogen 1.0 (<2.0) mg/dL Leukocyte Esterase Rfl 3+ H (Negative) ANA/UL Urine RBC 3-5 H (0-2) /hpf Urine WBC 21-50 H (0-3) /hpf Ur Squamous Epith Cells Occasional (Few) /hpf Urine Bacteria 1+ H /hpf Urine Casts 0-2 Discharge Plan Discharge Clinical Impression: Headache, UTI (urinary tract infection) Patient Disposition: Home Condition: Stable Instructions: Antibiotic Form, Urinary Tract Infection in Women (DC), Tachycardia (ED) Additional Instructions: Drink plenty of fluids. Antibiotic as directed for the suspected urinary tract infection. Have close follow-up with primary care physician. If you have any worsening symptoms then please call or return to the emergency department. Patient Language: Nigerien Prescriptions: New cephalexin 500 mg capsule 500 mg PO Q8H 7 Days Qty: 21 0RF No Action ascorbate calcium (vitamin C) 500 mg tablet 500 mg PO DAILY ferrous sulfate 325 mg (65 mg iron) tablet 325 mg PO DAILY Follow-up/Referrals: Ada Dacosta DO [Primary Care Provider, Family Practice]
[2024-12-03 15:06] LABS: Hematocrit 35.6 % (37.0-47.0); Hemoglobin 11.9 g/dL (12.0-15.0); Immature Granulocyte Percent A 0.3 % (0-0.5); Lymphocytes Absolute Auto 0.92 K/mm3 (0.9-3.2); Mean Corpuscular HGB Conc 33.4 g/dl (32-36); Mean Corpuscular Hemoglobin 30.5 pg (26-34); Mean Corpuscular Volume 91.3 fl (80-100); Nucleated Red Blood Cells Absolute Auto 0.000 K/mm3 (0.0-0.012); Nucleated Red Blood Cells Perc 0.0 % (0.0-0.2); Platelet Count Result 232 k/mm3 (150-375); Red Blood Count 3.90 M/mm3 (4.2-5.4); White Blood Count 5.8 K/mm3 (4.5-10.0)
[2024-12-03 15:10] LABS: Add Urine Microscopic? YES; Appearance Urine Turbid (Clear); Glucose Urine UA Negative (Negative); Leukocyte Esterase Ur 3+ LEU/UL (Negative); Nitrate Urine Negative (Negative); Non Pathogenic Casts 0-2; Specific Grav Ur 1.020 (1.001-1.035)
[2024-12-03 15:20] LABS: Alanine Aminotransferase 20 U/L (6-35); Albumin Level 4.1 g/dL (3.5-5.1); Alkaline Phosphatase 56 U/L (38-126); Anion Gap 7 mmol/L (4-12); Aspartate Amino Transferase 30 U/L (14-36); Bilirubin,Total 1.0 mg/dL (0.2-1.3); Blood Urea Nitrogen 15 mg/dL (7-17); Calcium 8.7 mg/dL (8.4-10.2); Carbon Dioxide 24 mmol/L (22-30); Chloride 104 mmol/L (98-107); Estimated CRCL calculation 67 ml/min; Estimated Glomerular Filt Rate > 60; Glucose 96 mg/dL (65-110); Magnesium 2.1 mg/dL (1.6-2.3); Potassium 3.6 mmol/L (3.4-5.0); Sodium 135 mmol/L (137-145); Total Protein 7.1 g/dL (6.3-8.2)
[2024-12-03] MEDS: KETOROLAC 15 MG/ML VIAL (*BKC) IV PUSH (15:29)
[2024-12-03] MEDS: LACTATED RINGERS 1,000 ML 999 ML IV CONT (15:29)
[2024-12-03] MEDS: LORazepam (*CRX) 0.5 MG TABLET PO (15:29)
[2024-12-03 15:50] LABS: Thyroid Stimulating Hormone Reflex 0.738 uIU/mL (0.465-4.68)
[2024-12-03] MEDS: cefTRIAXone 1 GM in SODIUM CHLORIDE 0.9% IV 50 ML 100 ML IVPB (16:32)
== END 2024-12-03 17:13 | disposition home or self-care (01) ==
PROVIDERS: Emergency Provider Emergency Medicine; PCP Family Medicine
DX: R51.9 Headache, unspecified (principal); N39.0 Urinary tract infection, site not specified
CPT/HCPCS: 36415; 80053; 81001; 83735; 84443; 85025; 87086; 96361; 96365; 96375; 99284; A9270; J0696; J1885; J7120